=== PATIENT | male | born 1995 | race Caucasian/White ===

== ENCOUNTER 2019-06-26 08:53 | Emergency (ER) | payer MEDICAID, SELFPAY ==
[2019-06-26 09:06] VITALS: BP 142/89; PULSE 82; RESP 18; TEMP 35.6; O2SAT 99
--- NOTE | 2019-06-26 10:26 | ED.SKABFB ---
HPI - Skin/Abscess/Foreign Bdy General Chief complaint: Skin/Abscess/Foreign Body Stated complaint: Rash Time Seen by Provider: 06/26/19 10:26 Source: patient and RN notes reviewed Mode of arrival: ambulatory Limitations: no limitations History of Present Illness HPI narrative: 24 year old male who presents to [facility] care with 3-4 month duration of red raised scaly plaque type lesions on his forearms and lower legs which are itchy. Patient states that rash just seems to be getting worse, has used OTC lotions on his skin. Patient states that he was released from detention 1 month ago, states that he requested rash loked at there but they never did and he also requested lotion but was not provided any, states that he put grease on skin lesions while in detention. Patient states no fevers or any drainage from lesion areas just itchy. Patient denies any new medications, foods, soaps, detergents, or lotions. MD complaint: rash Onset (ago): month(s) (3-4) Tetanus up to date: unsure Location: LUE, RUE, LLE and RLE Severity: moderate Quality: pruritic and other (no pain) Pain Consistency: constant Relieving factors: none Exacerbating factors: none Context: none Associated symptoms: denies other symptoms Treatments prior to arrival: other (OTC lotions) Related Data Allergies Allergy/AdvReac Type Severity Reaction Status Date / Time No Known Allergies Allergy Verified 06/26/19 09:18 Review of Systems Review of Systems: Narrative: CONSTITUTIONAL: Denies fever, chills, or sweats. EYES: Denies visual changes, redness, or discharge. ENT: Denies rhinorrhea, congestion, sore throat, or otalgia. CARDIOVASCULAR: Denies chest pain, palpitations, or edema. RESPIRATORY: Denies cough or dyspnea. GASTROINTESTINAL: Denies abdominal pain, nausea, vomiting, or diarrhea. GENITOURINARY: Denies dysuria or hematuria. SKIN: positive for red raised scaly lesions on various aspects of body mainly forearms and lower legs states are itchy MUSCULOSKELETAL: Denies back pain, joint pain, or myalgia. NEUROLOGIC: Denies headache, numbness, or weakness. PSYCHIATRIC: Denies anxiety or depression. All systems reviewed & are unremarkable except as noted in HPI and below PMFSH Past Medical History Medical History (Updated 06/29/19 @ 17:42 by Matilde Koehler NP) ADHD Bipolar 1 disorder Social History Social History (Updated 06/29/19 @ 17:43 by Matilde Koehler NP) Substance use: current Substance use type: marijuana Living arrangements: with family Gender identity (if verbalized by the patient): Male Comments At time of signature, agree with nursing past medical, social history. There is no relevant family history pertinent to the presenting complaint Exam Const: General: healthy appearing, no acute distress and alert Nutritional Appearance: obese Orientation/consciousness: patient oriented x3 HENMT: Head: normal to inspection Ears: TM's normal bilaterally General nose exam: Normal external nose present and Normal nares present Face and sinus: sinuses nontender Mouth: Yes Normal oral and palatal mucosa present Teeth and gingiva: dentition normal Throat: posterior oropharynx normal Eyes: Conjunctivae: conjunctivae normal Pupils: Equal, round and reactive pupils present EOM: EOMs intact bilaterally Neck: Neck: normal visual inspection and no lymphadenopathy Chest: Chest palpation & inspection: normal inspection of the chest and abnormal inspection of the chest Resp: Effort & Inspection: normal respiratory effort Auscultation: clear to auscultation bilaterally Cardio: Rate: regular rate Rhythm: regular rhythm GI: Auscultation: normal bowel sounds : General: Yes no CVA tenderness Other: denies any pain or swelling to testicles, no dysuria Back/Spine/Pelvis: Back: no CVA tenderness Other: Moves all extremities on own power with normal strength Skin: General skin exam: normal color Other: red scaly areas on arms and lower legs, smal
== END 2019-06-26 10:41 | disposition home or self-care (01) ==
PROVIDERS: Emergency Provider Registered Nurse
DX: L40.9 Psoriasis, unspecified (principal)
CPT/HCPCS: 99213; G0463

== ENCOUNTER 2021-01-03 11:22 | Emergency (ER) | payer OTHER, SELFPAY ==
[2021-01-03 11:27] VITALS: BP 136/88; PULSE 93; RESP 18; TEMP 36.6; O2SAT 94
[2021-01-03 11:32] VITALS: O2SAT 94
--- NOTE | 2021-01-03 11:40 | ED.URI ---
HPI - URI/Sore Throat General Chief Complaint: Upper Respiratory Infection Stated Complaint: I think I have covid Time Seen by Provider: 01/03/21 11:28 History of Present Illness HPI Narrative: Patient presents with concerns for Covid. Patient reports he has had diffuse body aches nausea diarrhea and cough for the past week. He took a home Covid test and tested positive. He was not sure how to treat Covid so he came to the ER for evaluation. Reports his nausea is improving but continues to have body aches. Reports mild shortness of breath he has not attempted any therapies at home. Patient is hoping to at least get something to help with his nausea. Related Data Allergies Allergy/AdvReac Type Severity Reaction Status Date / Time No Known Allergies Allergy Verified 06/26/19 09:18 Review of Systems Review of Systems: CONSTITUTIONAL: Denies fever, chills, or sweats. EYES: Denies visual changes, redness, or discharge. ENT: Denies rhinorrhea, congestion, sore throat, or otalgia. CARDIOVASCULAR: Denies chest pain, palpitations, or edema. RESPIRATORY: Reports mild cough and shortness of breath GASTROINTESTINAL: Reports nausea and vomiting improving also reports mild diffuse abdominal pain GENITOURINARY: Denies dysuria or hematuria. SKIN: Denies rash or itching. MUSCULOSKELETAL: Denies back pain, joint pain. NEUROLOGIC: Denies headache, numbness, dizziness, or weakness. PSYCHIATRIC: Denies anxiety or depression. PMFSH Past Medical History Medical History ADHD Bipolar 1 disorder Social History Social History Substance use: current Substance use type: marijuana Gender identity (if verbalized by the patient): Male Exam Narrative: GENERAL: Well-appearing, well-nourished, and in no acute distress. HEAD: Normocephalic, atraumatic. EYES: PERRLA and EOMI. ENT: Nares clear, no rhinorrhea or epistaxis. Mucous membranes moist. NECK: Supple. No masses. No JVD CHEST: Clear to auscultation. No respiratory distress. No wheezes rales or rhonchi HEART: Regular rate and rhythm. No murmur heard. Normal peripheral pulses. ABDOMEN: Minimal pain with deep palpation soft, nondistended EXTREMITIES: Normal range of motion. No edema. SKIN: Warm, dry, no rash. NEURO: No focal deficits. Alert and oriented x3. PSYCH: Normal mood and affect. Course Vital Signs Vital signs: Vital Signs Temperature 36.6 C 01/03/21 11:27 Pulse Rate 93 01/03/21 11:27 Respiratory Rate 18 01/03/21 11:27 Blood Pressure 136/88 01/03/21 11:27 Pulse Oximetry 94 01/03/21 11:27 Temperature 36.6 C 01/03/21 11:27 Pulse Rate 93 01/03/21 11:27 Respiratory Rate 18 01/03/21 11:27 Blood Pressure 136/88 01/03/21 11:27 Pulse Oximetry 94 01/03/21 11:32 MDM - URI/Sore Throat MDM Narrative Medical decision making narrative: H&P as above, vss, pt looks clinically well, exam reassuring, labs/img considered, symptomatic relief available as needed, on reevaluation pt continues to looks clinically well. Suspect Covid infection, dns severe sepsis, severe dehydration, PE. plan to tx/monitor as op w/ pcm f/u findings/plan discussed with pt, pt agree/comfortable with plan, return precautions given Discharge Plan Discharge Clinical Impression: COVID-19 Patient Disposition: Home, Self-Care Condition: Improved Instructions: Antibiotic Form, COVID-19 (Coronavirus Disease 2019) (ED) Additional Instructions: Please return if your symptoms worsen or fail to improve. If you develop a fever, can not eat/drink anything or if you have any other concerns. Prescriptions: New ondansetron 4 mg tablet,disintegrating 4 mg PO Q8H PRN (Reason: nausea and vomiting) Qty: 14 RF: 0 No Action methylprednisolone [Medrol (Bogdan)] 4 mg tablets,dose pack See Rx Instructions .ROUTE .COMPLEX Qty: 21 RF: 0 triamcinolone acetonide 0.1
== END 2021-01-03 11:51 | disposition home or self-care (01) ==
PROVIDERS: Emergency Provider Emergency Medicine
DX: U07.1 COVID-19 (principal)
CPT/HCPCS: 99283

== ENCOUNTER 2021-03-16 09:29 | Emergency (ER) | payer OTHER, SELFPAY ==
[2021-03-16 09:35] VITALS: BP 156/98; PULSE 86; RESP 16; TEMP 36.9; O2SAT 99
[2021-03-16] MEDS: TETANUS,DIPHTHERIA,AC PERTUSSIS ADULT (0.5 ML) BOOSTRIX IM (10:04)
--- NOTE | 2021-03-16 10:32 | ED.GENADULT ---
HPI - General Adult General Chief complaint: Wound/Laceration <Ray Dia PA-C - Last Filed: 03/16/21 11:32> Stated complaint: right hand laceration <Ray Dia PA-C - Last Filed: 03/16/21 11:32> Time Seen by Provider: 03/16/21 09:35 <Ray Dia PA-C - Last Filed: 03/16/21 11:32> Source: patient <CJ Perry Last Filed: 03/16/21 11:32> Mode of arrival: ambulatory <CJ Perry Last Filed: 03/16/21 11:32> Limitations: no limitations <CJ Perry Last Filed: 03/16/21 11:32> History of Present Illness HPI narrative: Patient presents with chief complaint of lacerations between his first and second digit of his right hand that he sustained while using a drill bit, lacerating his hand. He reports full range of motion. He states he is not sure if he is up-to-date on his tetanus. Patient denies any other injuries or concerns. <Ray Dia PA-C - Last Filed: 03/16/21 11:32> Related Data Home medications: Home Medications Medication Instructions Recorded Confirmed No Home Medications 03/16/21 03/16/21 <Ray Dia PA-C - Last Filed: 03/16/21 11:32> Allergies/adverse reactions: Allergies Allergy/AdvReac Type Severity Reaction Status Date / Time No Known Allergies Allergy Verified 03/16/21 09:37 <Ray Dia PA-C - Last Filed: 03/16/21 11:32> Review of Systems Review of Systems: CONSTITUTIONAL: Denies fever, chills, or sweats. EYES: Denies visual changes, redness, or discharge. ENT: Denies rhinorrhea, congestion, sore throat, or otalgia. CARDIOVASCULAR: Denies chest pain, palpitations, or edema. RESPIRATORY: Denies cough or dyspnea. GASTROINTESTINAL: Denies abdominal pain, nausea, vomiting, or diarrhea. GENITOURINARY: Denies dysuria or hematuria. SKIN: Reports laceration denies rash or itching. MUSCULOSKELETAL: Denies back pain, joint pain, or myalgia. NEUROLOGIC: Denies headache, numbness, dizziness, or weakness. PSYCHIATRIC: Denies anxiety or depression. <Ray Dia PA-C - Last Filed: 03/16/21 11:32> PMFSH Past Medical History Medical History: Medical History ADHD Bipolar 1 disorder <Ray Dia PA-C - Last Filed: 03/16/21 11:32> Social History Social History: Social History Substance use: current Substance use type: marijuana Gender identity (if verbalized by the patient): Male <Ray Dia PA-C - Last Filed: 03/16/21 11:32> Exam Narrative: GENERAL: Well-appearing, well-nourished, and in no acute distress. HEAD: Normocephalic, atraumatic. EYES: PERRLA and EOMI. CHEST: Clear to auscultation. No respiratory distress. No wheezes rales or rhonchi HEART: Regular rate and rhythm. EXTREMITIES: Normal range of motion. No edema. SKIN:3 irregular short, skipping lacerations to right hand between 1st and 2nd digit. closest to thumb superficial and approximated w/o intervention. space between 2nd and 3rd cause flap between. Cap refill, sensation, and ROM intact to extremity. Warm, dry, no rash. NEURO: No focal deficits. Alert and oriented x3. PSYCH: Normal mood and affect. <Ray Dia PA-C - Last Filed: 03/16/21 11:32> Course Vital Signs Vital signs: Vital Signs Temperature 98.4 F 03/16/21 09:35 Pulse Rate 86 03/16/21 09:35 Respiratory Rate 16 03/16/21 09:35 Blood Pressure 156/98 H 03/16/21 09:35 Pulse Oximetry 99 03/16/21 09:35 Temperature 98.4 F 03/16/21 09:35 Pulse Rate 86 03/16/21 09:35 Respiratory Rate 16 03/16/21 09:35 Blood Pressure 156/98 H 03/16/21 09:35 Pulse Oximetry 99 03/16/21 09:35 <Ray Dia PA-C - Last Filed: 03/16/21 11:32> Procedures Laceration Laceration 1: Site: hand <Ray Dia PA-C - Last Filed: 03/16/21 11:32> Side (If applicable): right <Elizabeth
== END 2021-03-16 11:38 | disposition home or self-care (01) ==
PROVIDERS: Emergency Provider General Practice
DX: S61.411A Laceration without foreign body of right hand, initial encounter (principal); Z23 Encounter for immunization; W27.8XXA Contact with other nonpowered hand tool, initial encounter
CPT/HCPCS: 12002; 90471; 90715; 99282

== ENCOUNTER 2022-04-04 09:26 | Emergency (ER) | payer SELFPAY ==
[2022-04-04 09:32] VITALS: BP 128/86; PULSE 124; RESP 20; TEMP 36.9; O2SAT 95
[2022-04-04 10:33] LABS: Influenza A QL RT-PCR Positive (Negative); Influenza B QL RT-PCR Negative (Negative); SARS-CoV-2 RNA PCR Negative
--- NOTE | 2022-04-04 12:39 | ED.URI ---
HPI - URI/Sore Throat General Chief Complaint: Upper Respiratory Infection Stated Complaint: uri symptoms since yesterday Time Seen by Provider: 04/04/22 12:39 Related Data Home Medications Medication Instructions Recorded Confirmed No Home Medications 03/16/21 03/16/21 Allergies Allergy/AdvReac Type Severity Reaction Status Date / Time No Known Allergies Allergy Verified 04/04/22 09:32 PMF Past Medical History Medical History ADHD Bipolar 1 disorder Social History Social History Substance use: current Substance use type: marijuana Gender identity (if verbalized by the patient): Male Course Vital Signs Vital signs: Vital Signs Temperature 36.9 C 04/04/22 09:32 Pulse Rate 124 H 04/04/22 09:32 Respiratory Rate 20 04/04/22 09:32 Blood Pressure 128/86 04/04/22 09:32 Pulse Oximetry 95 04/04/22 09:32 Oxygen Delivery Room Air 04/04/22 09:32 Temperature 36.9 C 04/04/22 09:32 Pulse Rate 124 H 04/04/22 09:32 Respiratory Rate 20 04/04/22 09:32 Blood Pressure 128/86 04/04/22 09:32 Pulse Oximetry 95 04/04/22 09:32 Oxygen Delivery Room Air 04/04/22 09:32 MDM - URI/Sore Throat Lab Data Labs: Lab Results 04/04/22 Range/Units 09:37 Influenza A (RT-PCR) Positive (Negative) Influenza B (RT-PCR) Negative (Negative) SARS-CoV-2 RNA (RT-PCR) Negative Discharge Plan Discharge Prescriptions: No Action No Home Medications Follow-up/Referrals: PHYSICIAN,EXAMINATION PROCTOR [Primary Care Provider] -
== END 2022-04-04 12:55 | disposition left against medical advice (07) ==
PROVIDERS: Family Medicine; Emergency Provider Emergency Medicine
DX: R68.89 Other general symptoms and signs (principal); Z20.822 Contact with and (suspected) exposure to COVID-19
CPT/HCPCS: 87636; 99199